=== PATIENT | female | born 1955 | race African-American/Black ===

== ENCOUNTER 2021-12-24 11:45 | Emergency (ER) | payer MEDICARE ==
[~2021-12-24] VITALS: Ht 170.2 cm; Wt 81.9 kg
[2021-12-24] MEDS ORDERED: DIOVAN80 MG PO ×2 (12:12→12:21)
[2021-12-24] MEDS ORDERED: AZITHROMYCIN250 MG PO (12:12)
[2021-12-24] MEDS ORDERED: COREG3.125 MG PO (12:12)
[2021-12-24] MEDS ORDERED: AMLODIPINE BESYL5 MG PO (12:12)
[2021-12-24] MEDS ORDERED: CLONIDINE HCL 0.2 MG TAB PO ONE (12:15)
[2021-12-24] MEDS ORDERED: CLONIDINE HCL 0.1 MG TAB ONE (12:20)
[2021-12-24] MEDS ORDERED: FLOMAX0.4 MG PO (12:21)
[2021-12-24] MEDS ORDERED: NEURONTIN100 MG PO (12:21)
[2021-12-24] MEDS ORDERED: GLIMEPIRIDE2 MG PO (12:21)
[2021-12-24] MEDS ORDERED: CARVEDILOL3.125 MG PO (12:21)
[2021-12-24] MEDS ORDERED: FAMOTIDINE20 MG PO (12:21)
[2021-12-24] MEDS ORDERED: SIMVASTATIN20 MG PO (12:21)
[2021-12-24] MEDS ORDERED: ASPIRIN EC81 MG PO (12:21)
== END 2021-12-24 12:27 | disposition home or self-care (01) ==
LOC: FSED 12:11
DX: Z76.0 Encounter for issue of repeat prescription (principal); J02.9 Acute pharyngitis, unspecified; I10 Essential (primary) hypertension; E11.9 Type 2 diabetes mellitus without complications; E78.5 Hyperlipidemia, unspecified; I25.10 Atherosclerotic heart disease of native coronary artery without angina pectoris; Z87.442 Personal history of urinary calculi
CPT/HCPCS: 99283